=== PATIENT | male | born 1975 | race Caucasian/White ===

== ENCOUNTER 2021-12-11 13:42 | Emergency (ER) | payer BC ==
[~2021-12-11] VITALS: Ht 185.4 cm; Wt 97.7 kg
[2021-12-11 14:37] VITALS: BP 152/91
[2021-12-11] MEDS ORDERED: PENI250T2 PO (16:44)
[2021-12-11] MEDS ORDERED: NAPR-56 PO (16:44)
[2021-12-11] MEDS ORDERED: penicillin V potassium 500mg tablet PO ONE (16:45)
[2021-12-11] MEDS ORDERED: naproxen 500mg tablet PO ONE (16:45)
== END 2021-12-11 17:22 | disposition home or self-care (01) ==
LOC: ER 13:42
DX: K04.7 Periapical abscess without sinus (principal); K08.89 Other specified disorders of teeth and supporting structures; Z79.2 Long term (current) use of antibiotics; Z79.899 Other long term (current) drug therapy
CPT/HCPCS: 99283